=== PATIENT | female | born 2000 | race Caucasian/White ===

== ENCOUNTER 2019-01-20 01:46 | Emergency (ER) | payer SELFPAY ==
--- NOTE | 2019-01-20 03:33 | ER Document Report ---
ED Medical Screen (RME) - General Chief Complaint: Breathing Difficulty Stated Complaint: ARM NUMBNESS Time Seen by Provider: 01/20/19 03:31 Notes: 18-year-old female chief complaint of episode prior to arrival where she felt palpitations, lightheaded, tingling in her arms worse on the left, and like she could not breathe. She states that she felt like she passed out for a few seconds on the ride over here as well. She states she has a history of anxiety and is out of her Xanax for the past few days. She denies smoking, recreational drugs, daily medications otherwise. TRAVEL OUTSIDE OF THE [place] IN LAST 30 DAYS: No - Related Data Allergies/Adverse Reactions: No Known Allergies Allergy (Unverified 01/20/19 01:50) Physical Exam - Vital signs Vitals: Temp Pulse Resp BP Pulse Ox 98.1 F 119 H 24 111/73 97 01/20/19 02:21 01/20/19 02:21 01/20/19 02:21 01/20/19 02:21 01/20/19 02:21 - General General appearance: Appears well In distress: None - Cardiovascular Rhythm: Regular. No: Tachycardia Heart sounds: Normal auscultation, S1 appreciated, S2 appreciated Course - Re-evaluation Re-evalutation: Heart rate and rhythm are normal on my evaluation of the patient with auscultation. She is well-appearing. EKG without concerning abnormality at this time. Work-up pending. I have greeted and performed a rapid initial assessment of this patient. A comprehensive ED assessment and evaluation of the patient, analysis of test results and completion of the medical decision making process will be conducted by additional ED providers. - Vital Signs Vital signs: Temp Pulse Resp BP Pulse Ox 98.1 F 119 H 24 111/73 97 01/20/19 02:21 01/20/19 02:21 01/20/19 02:21 01/20/19 02:21 01/20/19 02:21
[2019-01-20 04:06] LABS: ABSOLUTE EOSINOPHILS # (AUTO) 0.7 10^3/uL (0.0-0.6); ABSOLUTE LYMPHOCYTES (AUTO) 2.6 10^3/uL (0.5-4.7); ABSOLUTE MONOCYTES (AUTO) 0.7 10^3/uL (0.1-1.4); ABSOLUTE NEUT (AUTO) 6.8 10^3/uL (1.7-8.2); BASOPHILS % (AUTO) 0.3 % (0-2); EOSINOPHILS % (AUTO) 6.1 % (0-6); HEMOGLOBIN 12.6 g/dL (12.0-15.5); LYMPHOCYTES % (AUTO) 24.3 % (13-45); MEAN CORPUSCULAR HEMOGLOBIN 29.2 pg (27.0-33.4); MEAN CORPUSCULAR HGB CONC 34.1 g/dL (32.0-36.0); MEAN CORPUSCULAR VOLUME 86 fl (80-97); MONOCYTES % (AUTO) 6.4 % (3-13); PLATELET COUNT 273 10^3/uL (150-450); RED BLOOD COUNT 4.33 10^6/uL (3.72-5.28); SEGMENTED NEUTROPHILS % (AUTO) 62.9 % (42-78); TOTAL CELLS COUNTED % (AUTO) 100 %; WHITE BLOOD COUNT 10.9 10^3/uL (4.0-10.5)
[2019-01-20 04:29] LABS: ALANINE AMINOTRANSFERASE 19 U/L (5-35); ALBUMIN 4.6 g/dL (3.7-5.6); ALKALINE PHOSPHATASE 56 U/L (50-135); ANION GAP 11 (5-19); ASPARTATE AMINO TRANSFERASE 23 U/L (5-30); BILIRUBIN,DIRECT 0.3 mg/dL (0.0-0.4); BILIRUBIN,TOTAL 0.5 mg/dL (0.2-1.3); BLOOD UREA NITROGEN 13 mg/dL (7-20); CALCIUM 9.6 mg/dL (8.4-10.2); CARBON DIOXIDE 26 mmol/L (22-30); CHLORIDE 106 mmol/L (98-107); GLUCOSE 92 mg/dL (75-110); POTASSIUM 3.9 mmol/L (3.6-5.0); SODIUM 143.4 mmol/L (137-145)
[2019-01-20 04:31] LABS: APPEARANCE,URINE SLIGHTLY-CLOUDY; BILIRUBIN,URINE NEGATIVE (NEGATIVE); CALCIUM OXALATE CRYSTALS,URINE FEW /HPF; COLOR,URINE YELLOW; GLUCOSE, URINE NEGATIVE (NEGATIVE); KETONES,URINE NEGATIVE (NEGATIVE); LEUKOCYTE ESTERASE,URINE SMALL (NEGATIVE); NITRITE,URINE NEGATIVE (NEGATIVE); PROTEIN,URINE NEGATIVE (NEGATIVE); URINE SPECIFIC GRAVITY 1.019; UROBILINOGEN,URINE NEGATIVE mg/dL (<2.0)
--- NOTE | 2019-01-20 04:40 | RADIOLOGY REPORT (SQ) ---
EXAM DESCRIPTION: X-ray two view chest. CLINICAL HISTORY: 18 years Female, shortness of breath COMPARISON: None. TECHNIQUE: PA and Lateral views of the chest performed on 01/20/2019 at 4:13 AM FINDINGS: The lungs are well expanded and are clear. The costophrenic sulci are clear. There is no evidence of a pneumothorax. The cardiac silhouette is normal in size. The mediastinal contours are normal. No acute osseous abnormalities are identified. No focal soft tissue abnormalities are identified. IMPRESSION: No evidence of acute intrathoracic disease.
[2019-01-20 05:23] LABS: FREE T4 (FREE THYROXINE) 0.97 ng/dL (0.78-2.19)
[2019-01-20 05:37] LABS: THYROID STIMULATING HORMONE 9.98 uIU/mL (0.47-4.68)
--- NOTE | 2019-01-20 07:08 | ER Document Report ---
ED Psych Disorder / Suicide <GONSALEZTONY - Last Filed: 01/20/19 09:22> - General Mode of Arrival: Ambulatory Information source: Patient TRAVEL OUTSIDE OF THE [place] IN LAST 30 DAYS: No <YANNICK GIRON - Last Filed: 01/20/19 10:18> - General Chief Complaint: Breathing Difficulty Stated Complaint: ARM NUMBNESS Time Seen by Provider: 01/20/19 03:31 Primary Care Provider: [facility] [Outside] - Follow up in 3-5 days [facility] [Outside] - Follow up as needed Notes: This 18-year-old female patient comes emergency room for anxiety attack. She reports she woke up about midnight with her chest cramping, her heart beating fast and skipping beats, feeling like she could not breathe, hot and cold flashes, lightheaded, numbness and tingling in her left upper extremity. She states she thinks she might of passed out a few seconds in route to the hospital. She reports being started on Xanax 0.5 mg which she had been taking twice daily, but states they told her she could take it up to 5 times daily. The Xanax was started while she was living in [place] 6 months ago for anxiety symptoms and PTSD. She moved to this area 3 weeks ago, ran out of her Xanax 4 days ago. (YANNICK GIRON) - Related Data Allergies/Adverse Reactions: No Known Allergies Allergy (Unverified 01/20/19 01:50) Past Medical History - General Information source: Patient - Social History Smoking Status: Never Smoker Cigarette use (# per day): No Chew tobacco use (# tins/day): No Smoking Education Provided: No Frequency of alcohol use: None Drug Abuse: None Lives with: Friend Family History: Reviewed & Not Pertinent Patient has suicidal ideation: No Patient has homicidal ideation: No - Medical History Medical History: Negative Psychiatric Medical History: Reports: Hx Anxiety Surgical Hx: Negative <YANNICK GIRON - Last Filed: 01/20/19 10:18> Review of Systems - Review of Systems Constitutional: No symptoms reported EENT: No symptoms reported Cardiovascular: No symptoms reported Respiratory: No symptoms reported Gastrointestinal: No symptoms reported Genitourinary: No symptoms reported Female Genitourinary: Last menstrual period - Patient has the Mirena IUD Musculoskeletal: No symptoms reported Skin: No symptoms reported Hematologic/Lymphatic: No symptoms reported Neurological/Psychological: Anxiety <YANNICK GIRON - Last Filed: 01/20/19 10:18> Physical Exam - Vital signs Interpretation: Normal <YANNICK GRION - Last Filed: 01/20/19 10:18> - Vital signs Vitals: Temp Pulse Resp BP Pulse Ox 98.1 F 119 H 24 111/73 97 01/20/19 02:21 01/20/19 02:21 01/20/19 02:21 01/20/19 02:21 01/20/19 02:21 - Notes Notes: PHYSICAL EXAMINATION: GENERAL: Well-appearing, well-nourished and in no acute distress. HEAD: Atraumatic, normocephalic. EYES: Pupils equal round and reactive to light, extraocular movements intact, sclera anicteric, conjunctiva are normal. ENT: nares patent, oropharynx clear without exudates. Moist mucous membranes. NECK: Normal range of motion, supple without lymphadenopathy LUNGS: Breath sounds clear to auscultation bilaterally and equal. No wheezes rales or rhonchi. HEART: Regular rate and rhythm without murmurs ABDOMEN: Soft, nontender, normoactive bowel sounds. No guarding, no rebound. No masses appreciated. EXTREMITIES: Normal range of motion, no pitting or edema. No cyanosis. NEUROLOGICAL: Cranial nerves grossly intact. Normal speech, normal gait. Normal sensory, motor, and reflex exams. PSYCH: Normal mood, normal affect. SKIN: Warm, Dry, normal turgor, no rashes or lesions noted. (YANNICK GIRON) Course - Laboratory Result Diagrams: 01/20/19 03:55 01/20/19 03:55 <TONY GONSALEZ - Last Filed: 01/20/19 09:22> - Laboratory Result Diagrams: 01/20/19 03:55 01/20/19 03:55 - Diagnostic Test Radiology reviewed: Image reviewed, Reports reviewed - Chest x-ray is unremarkab le - EKG Interpretation by Ca EKG shows normal: Sinus rhythm, [place], Intervals, QRS Complexes, ST-T Waves Rate: Normal Rhythm: NSR [place]/QRS: Right axis deviation - Borderline right axis deviation When compared to previous EKG there are: Previous EKG unavailable <YANNICK GIRON - Last Filed: 01/20/19 10:18> - Re-evaluation Re-evalutation: 01/20/19 07:07 I discussed the poor decision made by her provider to put her on continuous benzodiazepine therapy for anxiety such a young age. Since she just moved to this area and has not established with any local medical providers or psychological providers, I will put a consult in for the psychiatric staff to see the patient this morning. (YANNICK GIRON) - Vital Signs Vital signs: Temp Pulse Resp BP Pulse Ox 98.1 F 84 16 104/63 100 01/20/19 05:47 01/20/19 05:47 01/20/19 05:47 01/20/19 05:47 01/20/19 05:47 - Laboratory Laboratory results interpreted by me: 01/20/19 01/20/19 01/20/19 03:55 03:55 04:00 WBC 10.9 H Eosinophils % 6.1 H Absolute Eosinophils 0.7 H TSH 9.98 H Urine Blood LARGE H Ur Leukocyte Esterase SMALL H Discharge <TONY GONSALEZ - Last Filed: 01/20/19 09:22> <YANNICK GIORN - Last Filed: 01/20/19 10:18> - Discharge Clinical Impression: PTSD (post-traumatic stress disorder) Anxiety disorder Qualifiers: Anxiety disorder type: unspecified anxiety disorder Qualified Code(s): F41.9 - Anxiety disorder, unspecified Condition: Stable Disposition: HOME, SELF-CARE Additional Instructions: You have been evaluated both medical and behavioral health teams have been deemed appropriate for discharge. You have been provided prescriptions for BuSpar 10 mg twice daily and clonidine 0.1 mg nightly; please take as directed. You are highly encouraged to follow-up with both therapy and medication management to address PTSD symptoms. You provided a resource list of area providers including mobile crisis contact information. Panic Attack The cause of panic attacks is unknown. Symptoms can include chest pain, shortness of breath, palpitations, sweats, and a sense of smothering or impending doom. In time, the panic attacks can lead to generalized anxiety and phobias. Because the symptoms can mimic heart attack, pulmonary embolism, and other serious diseases, the physician has evaluated you for these conditions. There is no evidence of a serious problem. An acute panic attack usually goes away by itself without treatment. A severe attack can be treated with medicine to calm you. Long-term, antidepressant medicines may help prevent attacks. Counselling can also be very beneficial in dealing with panic attacks. Panic attacks are less likely if you are getting regular exercise, proper diet, and plenty of sleep. It's normal for panic attacks to cause many frightening symptoms. However, you should call or return if your symptoms change significantly or if you are worsening. Post-Traumatic Stress Disorder You seem to have post-traumatic stress disorder (PTSD). PTSD can cause chronic anxiety, sleeping problems, social withdrawal, and drug abuse. It can occur following a traumatic personal experience such as an accident, rape, assault, or of a loved one, or after experiencing a war or natural disaster. Symptoms may be delayed for days or even years. Emotional numbing, the inability to express grief, is usually the earliest sign. There may be apathy or agitation, aggression, and inability to perform ordinary tasks. Often there are frightening nightmares and sudden, intruding memories of the trauma. Panic attacks and feelings of guilt are common. Alcohol and drug use make post- traumatic stress symptoms worse. Medication may be temporarily necessary to combat anxiety, panic attacks, and depression. Medicine should not be considered a "cure." You must deal with the trauma and prepare to go on. Group therapy is often helpful. This helps you "talk through" the problem with others who share your symptoms. We can provide you with an appropriate referral. AT ANY TIME, IF YOUR SYMPTOMS CHANGE SIGNIFICANTLY OR WORSEN OR YOU DEVELOP NEW SYMPTOMS, RETURN TO THE EMERGENCY DEPARTMENT IMMEDIATELY FOR RE-EVALUATION. Prescriptions: Clonidine HCl [Catapres 0.1 mg Tablet] 0.1 mg PO QHS #14 tablet Buspirone HCl [Buspar 10 mg Tablet] 10 mg PO BID #28 tablet Referrals: [facility] [Outside] - Follow up as needed [facility] [Outside] - Follow up in 3-5 days Scribe Attestation: 01/20/19 10:18 I personally performed the services described in the documentation, reviewed and edited the documentation which was dictated to the scribe in my presence, and it accurately records my words and actions. (YANNICK GIRON)
[2019-01-20 08:39] LABS: URINE AMPHETAMINES SCREEN NEGATIVE; URINE BARBITURATES SCREEN NEGATIVE; URINE BENZODIAZEPINES SCREEN NEGATIVE; URINE COCAINE SCREEN NEGATIVE; URINE MARIJUANA (THC) SCREEN NEGATIVE; URINE METHADONE SCREEN NEGATIVE; URINE PHENCYCLIDINE SCREEN NEGATIVE
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
[2019-01-20] MEDS ORDERED: BUSPIRONE HCL 10 MG TABLET PO ONE (10:18)
[2019-01-20 10:48] VITALS: BP 109/59
--- NOTE | 2019-01-22 00:10 | EKG REPORT ---
SEVERITY:- OTHERWISE NORMAL ECG - SINUS RHYTHM BORDERLINE RIGHT AXIS DEVIATION : Confirmed by: Flower Pickett 22-Jan-2019 00:10:09
== END 2019-01-20 10:48 | disposition home or self-care (01) ==
LOC: ER 01:46
DX: F43.10 Post-traumatic stress disorder, unspecified (principal); F41.9 Anxiety disorder, unspecified; R06.00 Dyspnea, unspecified; R20.0 Anesthesia of skin
CPT/HCPCS: 36415; 71046; 80053; 80307; 81001; 84439; 84443; 84481; 84703; 85025; 93005; 93010; 99284